=== PATIENT | male | born 1965 | race African-American/Black ===

== ENCOUNTER 2022-03-20 17:01 | Observation (INO) | payer OTHER ==
--- NOTE | 2022-03-20 18:01 | RAD REPORT ---
EXAM DESCRIPTION: RAD - Chest Single View - 03/20/2022 5:48 pm CLINICAL HISTORY: Cough Chest pain. COMPARISON: No comparisons FINDINGS: Portable technique limits examination quality. The lungs are grossly clear. The heart is normal in size. No displaced fractures. IMPRESSION: No acute intrathoracic process suspected.
[2022-03-20 19:01] LABS: Absolute Lymphocytes (CBC) 2.5 K/uL (0.7-4.9); Hematocrit 42.9 % (39.6-49.0); MCV 84.2 fL (80-100); RBC Red Blood Cell Count 5.09 M/uL (4.33-5.43)
[2022-03-20 19:20] LABS: Albumin 4.2 g/dL (3.4-5.0); Bilirubin Direct 0.2 mg/dL (0-0.2); Bilirubin Total 0.7 mg/dL (0.2-1.0); Magnesium 2.2 mg/dL (1.8-2.4); Potassium 3.7 mmol/L (3.5-5.1); Protein, Total 7.9 g/dL (6.4-8.2)
[2022-03-20 19:24] LABS: Troponin High Sensitivity 65.4 pg/mL (<58.9)
--- NOTE | 2022-03-20 20:03 | EDPHYS ---
Physician Documentation [facility] Name: Jerzy Ramos Age: 56 yrs Sex: Male : 1965 Arrival Date: 03/20/2022 Time: 17:07 Bed 27 Private MD: ED Physician Markus Azar HPI: 03/20 20:03 This 56 yrs old Black Male presents to ER via EMS with complaints of Shortness Of kb Breath. 20:03 The patient has shortness of breath with light activity. Onset: The symptoms/episode kb began/occurred 1 month(s) ago. Duration: The symptoms are continuous. The patient's shortness of breath is aggravated by exertion. Associated signs and symptoms: Pertinent positives: chest pain, diaphoresis. Severity of symptoms: At their worst the symptoms were moderate in the emergency department the symptoms are unchanged. The patient has not experienced similar symptoms in the past. The patient has been recently seen by a physician: admitted to [place] [facility], discharged yesterday. Pt reports shortness of breath on exertion for a month. Has been having chest pain today with episodes of tremors and diaphoresis. Was intubated and flown to [place] on Thursday because he was unresponsive. states they ran tests, but found nothing. Extubated and discharged yesterday. . Historical: - Allergies: 17:17 PENICILLINS; ww - Home Meds: 17:17 gabapentin 300 mg oral cap 1 cap 3 times per day [Active]; hydrochlorothiazide 12.5 mg ww Oral tab 1 tab once daily [Active]; meloxicam 15 mg oral tab 1 tab once daily [Active]; naltrexone 50 mg oral tab 1 tab once daily [Active]; allopurinol 300 mg Oral tab 1 tab 2 times per day [Active]; aspirin 81 mg Oral tab [Active]; atorvastatin 20 mg oral tab 1 tab once daily [Active]; cetirizine 10 mg oral tab 1 tab once daily [Active]; Lexapro 10 mg Oral tab 1 tab once daily [Active]; prazosin 2 mg Oral cap 1 cap daily [Active]; - Immunization history:: Adult Immunizations up to date. - Social history:: Smoking status: Patient reports the use of cigarette tobacco products, smokes one-half pack cigarettes per day. ROS: 19:58 Abdomen/GI: Negative for abdominal pain, nausea, vomiting, diarrhea, and constipation. kb 19:58 Constitutional: Positive for malaise. 19:58 Cardiovascular: Positive for chest pain, Negative for edema, orthopnea, palpitations, paroxysmal nocturnal dyspnea. 19:58 Respiratory: Positive for shortness of breath. 19:58 Neuro: Positive for tremor. 19:58 All other systems are negative. Exam: 20:02 Constitutional: This is a well developed, well nourished patient who is awake, alert, kb and in no acute distress. Head/Face: Normocephalic, atraumatic. ENT: Moist Mucous membranes Cardiovascular: Regular rate and rhythm with a normal S1 and S2. No gallops, murmurs, or rubs. No pulse deficits. Respiratory: Respirations even and unlabored. No increased work of breathing. Talking in full sentences Skin: Warm, dry with normal turgor. Normal color. MS/ Extremity: Pulses equal, no cyanosis. Neurovascular intact. Full, normal range of motion. Neuro: Awake and alert, GCS 15, oriented to person, place, time, and situation. Moves all extremities. Normal gait. Psych: Awake, alert, with orientation to person, place and time. Behavior, mood, and affect are within normal limits. Vital Signs: 17:14 BP 172 / 99; Pulse 73; Resp 13; Temp 99.7; Pulse Ox 100% on R/A; Weight 104.78 kg; ww Height 5 ft. 11 in. (180.34 cm); 19:30 BP 171 / 103; Pulse 68; Resp 20; Pulse Ox 100% on 2 lpm NC; ll3 20:30 BP 153 / 100; Pulse 65; Resp 12; Pulse Ox 100% on 2 lpm NC; ll3 17:14 Body Mass Index 32.22 (104.78 kg, 180.34 cm) ww MDM: 17:19 Patient medically screened. kb 19:58 Data reviewed: vital signs, nurses notes. Data interpreted: Pulse oximetry: on room air kb is 100 %. Interpretation: normal. Counseling: I had a detailed discussion with the patient and/or guardian regarding: the historical points, exam findings, and any diagnostic results supporting the discharge/admit diagnosis, lab results, radiology results, the need for further work-up and treatment in the hospital. 20:02 Physician consultation: Josselyn CHING was called at 20:02, regarding admission, to kb the telemetry unit. patient's condition, and will see patient in ED, shortly. 03/20 17:26 Order name: Basic Metabolic Panel; Complete Time: 19:26 kb 03/20 17:26 Order name: CBC with Diff; Complete Time: 19:08 kb 03/20 17:26 Order name: LFT's; Complete Time: 19:26 kb 03/20 17:26 Order name: Magnesium; Complete Time: 19:26 kb 03/20 17:26 Order name: NT PRO-BNP; Complete Time: 19:26 kb 03/20 17:26 Order name: Troponin HS; Complete Time: 19:26 kb 03/20 17:26 Order name: Flu; Complete Time: 18:19 kb 03/20 17:26 Order name: COVID-19 SARS RT PCR (Document "Date of Onset" if Symptomatic); Complete kb Time: 19:05 03/20 22:40 Order name: Creatine Phosphokinase EDMS 03/20 22:40 Order name: CKMB Creatine Kinase MB EDMS 03/21 05:03 Order name: CBC with Automated Diff EDMS 03/21 05:08 Order name: Troponin High Sensitivity EDMS 03/21 05:18 Order name: Basic Metabolic Panel EDMS 03/20 17:26 Order name: XRAY Chest (1 view); Complete Time: 18:03 kb 03/20 17:26 Order name: EKG; Complete Time: 17:26 kb 03/20 17:26 Order name: Cardiac monitoring; Complete Time: 18:05 kb 03/20 17:26 Order name: EKG - Nurse/Tech; Complete Time: 18:05 kb 03/20 17:26 Order name: IV Saline Lock; Complete Time: 18:39 kb 03/20 17:26 Order name: Labs collected and sent; Complete Time: 19:02 kb 03/20 17:26 Order name: O2 Per Protocol; Complete Time: 18:05 kb 03/20 17:26 Order name: O2 Sat Monitoring; Complete Time: 18:05 kb 03/21 05:18 Order name: Lipid Profile EDMS 03/21 05:18 Order name: Magnesium EDMS 03/21 05:18 Order name: Thyroid Stimulating Hormone EDMS 03/21 10:30 Order name: Troponin High Sensitivity EDMS 03/21 10:38 Order name: Protime (+INR) EDMS 03/21 10:38 Order name: PTT, Activated Partial Thromb EDMS Administered Medications: No medications were administered Disposition Summary: 03/20/22 20:03 Hospitalization Ordered Hospitalization Status: Observation kb Provider: Jaydon Malhotra Condition: Stable kb Problem: new kb Symptoms: are unchanged kb Bed/Room Type: Standard kb Location: [facility] ER HOLD(03/20/22 20:19) mw Room Assignment: ERHOLD-(03/20/22 20:19) mw Diagnosis - Chest pain, unspecified kb - Shortness of breath kb Forms: - Medication Reconciliation Form kb - SBAR form kb Signatures: Dispatcher [employer] EDDE Fatimah Rodriguez, FINESSE LOAN OPERATIONS SPECIALIST-Marie Calvin RN RN mw Zoe Mas RN RN ap3 Abida Flaherty RN RN ww Corrections: (The following items were deleted from the chart) 19:56 17:26 D-DIMER+COAG.LAB.BRZ ordered. EDDE EDDE 20:19 20:03 Telemetry/MedSurg (observation) [facility] 20:19 20:03 kb
--- NOTE | 2022-03-20 20:03 | ER ---
Nurse's Notes [facility] Name: Jerzy Ramos Age: 56 yrs Sex: Male : 1965 Arrival Date: 03/20/2022 Time: 17:07 Bed 27 Private MD: Diagnosis: Chest pain, unspecified;Shortness of breath Presentation: 03/20 17:14 Chief complaint: EMS states: Shortness of breath for 1 month. Life flighted on Thursday ww to [facility] and intubated. Patient was extubated yesterday and discharged. Patient still having shortness of breath, weakness, shaky feeling and like he has been hit with a truck. Coronavirus screen: Client denies travel out of the [place] in the last 14 days. Ebola Screen: Patient denies travel to an Ebola-affected area in the 21 days before illness onset. Initial Sepsis Screen: Does the patient meet any 2 criteria? No. Patient's initial sepsis screen is negative. Does the patient have a suspected source of infection? No. Patient's initial sepsis screen is negative. Risk Assessment: Do you want to hurt yourself or someone else? Patient reports no desire to harm self or others. Onset of symptoms is unknown. 17:14 Method Of Arrival: EMS: [facility] 17:14 Acuity: ANTIONETTE 3 ww Triage Assessment: 17:17 General: Appears in no apparent distress. uncomfortable, Behavior is cooperative. Pain: ww Complains of pain in generalized body aches. Neuro: Cabrera Agitation-Sedation Scale (RASS): 0 - Alert and Calm Level of Consciousness is awake, alert, obeys commands, Oriented to person, place, time, situation, Speech is normal. Cardiovascular: Capillary refill < 3 seconds Patient's skin is warm and dry. Rhythm is regular Chest pain is denied. Respiratory: Reports shortness of breath Airway is patent Respiratory effort is even, unlabored, Respiratory pattern is regular, symmetrical, Onset: The symptoms/episode began/occurred gradually, the patient has mild shortness of breath. GI: No signs and/or symptoms were reported involving the gastrointestinal system. Abdomen is non-distended, Abd is soft and non tender. Derm: No signs and/or symptoms reported regarding the dermatologic system. Skin is intact, is healthy with good turgor. Historical: - Allergies: 17:17 PENICILLINS; ww - Home Meds: 17:17 gabapentin 300 mg oral cap 1 cap 3 times per day [Active]; hydrochlorothiazide 12.5 mg ww Oral tab 1 tab once daily [Active]; meloxicam 15 mg oral tab 1 tab once daily [Active]; naltrexone 50 mg oral tab 1 tab once daily [Active]; allopurinol 300 mg Oral tab 1 tab 2 times per day [Active]; aspirin 81 mg Oral tab [Active]; atorvastatin 20 mg oral tab 1 tab once daily [Active]; cetirizine 10 mg oral tab 1 tab once daily [Active]; Lexapro 10 mg Oral tab 1 tab once daily [Active]; prazosin 2 mg Oral cap 1 cap daily [Active]; - Immunization history:: Adult Immunizations up to date. - Social history:: Smoking status: Patient reports the use of cigarette tobacco products, smokes one-half pack cigarettes per day. Screenin:23 Abuse screen: Denies threats or abuse. Denies injuries from another. Nutritional ww screening: No deficits noted. Tuberculosis screening: No symptoms or risk factors identified. Fall Risk None identified. Assessment: 17:23 Reassessment: Patient appears in no apparent distress at this time. No changes from ww previously documented assessment. Patient and/or family updated on plan of care and expected duration. Pain level reassessed. Patient is alert, oriented x 3, equal unlabored respirations, skin warm/dry/pink. see triage assessment. 18:23 Reassessment: Patient appears in no apparent distress at this time. No changes from ww previously documented assessment. Patient and/or family updated on plan of care and expected duration. Pain level reassessed. Patient is alert, oriented x 3, equal unlabored respirations, skin warm/dry/pink. 19:17 Reassessment: No changes from previously documented assessment. Patient and/or family ll3 updated on plan of care and expected duration. Pain level reassessed. Patient is alert, oriented x 3, equal unlabored respirations, skin warm/dry/pink. 19:24 Reassessment: Troponin 65.4, reported to Provider. vc1 20:30 Reassessment: No changes from previously documented assessment. Patient and/or family ll3 updated on plan of care and expected duration. Pain level reassessed. Patient is alert, oriented x 3, equal unlabored respirations, skin warm/dry/pink. 03/21 10:08 Cardiovascular: Patient's skin is warm and dry. Respiratory: Breath sounds are clear. ap3 Respiratory: Airway is patent. Vital Signs: 03/20 17:14 BP 172 / 99; Pulse 73; Resp 13; Temp 99.7; Pulse Ox 100% on R/A; Weight 104.78 kg; ww Height 5 ft. 11 in. (180.34 cm); 19:30 BP 171 / 103; Pulse 68; Resp 20; Pulse Ox 100% on 2 lpm NC; ll3 20:30 BP 153 / 100; Pulse 65; Resp 12; Pulse Ox 100% on 2 lpm NC; ll3 17:14 Body Mass Index 32.22 (104.78 kg, 180.34 cm) ED Course: 17:07 Patient arrived in ED. ap3 17:14 Abida Flaherty RN is Primary Nurse. ww 17:16 Triage completed. ww 17:17 Arm band placed on. ww 17:19 Fatimah Rodriguez FNP-C is [facility]. kb 17:19 Markus Azar MD is Attending Physician. kb 17:23 Patient has correct armband on for positive identification. Bed in low position. Call ww light in reach. Side rails up X2. Adult w/ patient. Client placed on continuous cardiac and pulse oximetry monitoring. NIBP monitoring applied. Warm blanket given. 17:50 XRAY Chest (1 view) In Process Unspecified. EDMS 20:02 Jaydon Malhotra is Hospitalizing Provider. 03/21 07:16 Primary Nurse role handed off by Abida Flaherty RN jl7 10:08 No provider procedures requiring assistance completed. Patient did not have IV access ap3 during this emergency room visit. 10:41 Zoe Mas, NOEL is Primary Nurse. jl7 Administered Medications: No medications were administered Medication: 10:08 VIS not applicable for this client. ap3 Outcome: 03/20 20:03 Decision to Hospitalize by Provider. kb 03/21 10:08 Admitted to ER Hold. Please see [facility] for further documentation. ap3 Condition: good Discharge instructions given to patient. 10:42 Patient left the ED. jl7 Signatures: Dispatcher [employer] EDWA Fatimah Rodriguez FNP-C FNP-Anjali Sosa RN RN jl7 Zoe Mas, RN RN ap3 Giles Mai, RN RN ll3 Abida Flaherty, RN RN ww Bing Turpin, RN RN vc1
--- NOTE | 2022-03-20 21:07 | P.HP ---
Certification for Inpatient Patient admitted to: Observation With expected LOS: <2 Midnights Patient will require the following post-hospital care: None Practitioner: I am a practitioner with admitting privileges, knowledge of patient current condition, hospital course, and medical plan of care. Services: Services provided to patient in accordance with Admission requirements found in Title 42 Section 412.3 of the Code of Federal Regulations Patient History Date of Service: 03/20/22 Primary Care Provider: [facility] Reason for admission: Chest Pain, SHOB History of Present Illness: Patient is a 56 y/o male with PMH of CAD, HTN, HLD, and gout who presented to the ED with complaints of chest pain, tremors, and diaphoresis on and off for a few days now. He also complaints of SNOW for 1 month. 2 days ago, he was taken via helicopter downtown after being found unresponsive, intubated by EMS, and worked up for what was thought to be stroke like symptoms. His workup was negative, he was extubated, and discharged. Patient and family say that they did not get any answers about what was wrong with him. [facility] and was sent here immediately after provider read EKG and heard extra heart sounds on auscultation. Patient's temp was 99.7 upon arrival, EKG showed T wave abnormality, and troponin HS 65.4. Patient is also requiring supplemental O2. He is admitted for further evaluation and treatment. Home medications list reviewed: Yes - Past Medical/Surgical History Diabetic: No -: HTN -: CAD -: HLD -: Gout -: 2 stents (unknown year) Psychosocial/ Personal History: Patient is . - Social History Smoking Status: Current every day smoker Alcohol use: Yes CD- Drugs: No Caffeine use: Yes Place of Residence: Home Review of Systems General: Other (tremors) Respiratory: SOB with Excertion Cardiovascular: Chest Pain Physical Examination - Physical Exam General: Alert, In no apparent distress HEENT: Atraumatic, PERRLA, EOMI, Sclerae nonicteric Neck: Supple, 2+ carotid pulse no bruit, No LAD, Without JVD or thyroid abnormality Respiratory: Clear to auscultation bilaterally, Normal air movement Cardiovascular: No edema, Regular rate/rhythm, Normal S1 S2 Gastrointestinal: Normal bowel sounds, No tenderness Musculoskeletal: No tenderness Integumentary: No rashes Neurological: Normal speech, Normal strength at 5/5 x4 extr, Normal tone, Normal affect - Studies Laboratory Data (last 24 hrs) 03/20/22 18:51: WBC 7.5, Hgb 14.0, Hct 42.9, Plt Count 194 03/20/22 18:51: Sodium 139, Potassium 3.7, BUN 14, Creatinine 1.06, Glucose 80, Magnesium 2.2, Total Bilirubin 0.7, AST 37, ALT 43, Alkaline Phosphatase 157 H Microbiology Data (last 24 hrs): 03/20/22 17:45 Nasopharnyx Influenza Type A Antigen Screen - Final 03/20/22 17:45 Nasopharnyx Influenza Type B Antigen Screen - Final Assessment and Plan - Problems (Diagnosis) (1) Chest pain Current Visit: Yes Status: Acute Qualifiers: Chest pain type: chest pain due to myocardial ischemia Ischemic chest pain type: unstable angina pectoris Qualified Code(s): I20.0 - Unstable angina (2) Elevated troponin Current Visit: Yes Status: Acute (3) Shortness of breath Current Visit: Yes Status: Acute (4) Hypertension Current Visit: Yes Status: Chronic Qualifiers: Hypertension type: primary hypertension Qualified Code(s): I10 - Essential (primary) hypertension (5) CAD (coronary artery disease) Current Visit: Yes Status: Acute Qualifiers: Coronary Disease-Associated Artery/Lesion type: [place] artery [place] vs. transplanted heart: [place] heart Associated angina: with unstable angina Qualified Code(s): I25.110 - Atherosclerotic heart disease of [place] coronary artery with unstable angina pectoris (6) Hyperlipidemia Current Visit: Yes Status: Acute Qualifiers: Hyperlipidemia type: unspecified Qualified Code(s): E78.5 - Hyperlipidemia, unspecified - Plan -Cardiology consult -Monitor on telemetry -Continue supplemental O2 as needed. Wean as tolerated. -Echo, lipid panel, and TSH ordered -Initial troponin HS slightly elevated at 65. Trend and check CPK and CKMB -Aspirin and atorvastatin daily -Monitor and replete electrolytes per protocol -Reconcile and continue home medications -Lovenox for VTE ppx -Full code Discharge Plan: Home Plan to discharge in: 24 Hours - Advance Directives Does patient have a Living Will: No Does patient have a Durable POA for Healthcare: No - Code Status/Comfort Care Code Status Assessed: Yes (Full) Critical Care: No Time Spent Managing Pts Care (In Minutes): 50
[2022-03-20] MEDS ORDERED: ACETAMINOPHEN 500 MG TAB PO PRN (21:40)
[2022-03-20] MEDS ORDERED: ONDANSETRON 4 MG/2 ML VIAL IV PRN (21:40)
[2022-03-20] MEDS ORDERED: ALBUTEROL 2.5 MG/3 ML NEB SOL NEB PRN (21:40)
[2022-03-20] MEDS ORDERED: METOPROLOL TAR 50 MG TAB PO ONE (22:15)
[2022-03-20] MEDS ORDERED: ASPIRIN EC 81 MG TAB PO ONE (22:15)
[2022-03-20 22:40] LABS: CKMB Creatine Kinase MB 1.5 ng/mL (1.0-3.6)
[2022-03-20] MEDS ORDERED: ASPIRIN 81 MG CHEWABLE TABLET ONE (22:50)
[2022-03-20] MEDS ORDERED: METOPROLOL TAR 50 MG TAB ONE (22:50)
[2022-03-20 22:51] VITALS: BMI 32.2
[2022-03-20] MEDS ORDERED: ZOLPIDEM TARTRATE 5 MG TABLET PO PRN (23:08)
[2022-03-21] MEDS ORDERED: MORPHINE 2 MG/ML SYR IV ONE (04:41)
[2022-03-21 04:43] LABS: Absolute Lymphocytes (CBC) 2.3 K/uL (0.7-4.9); Hematocrit 40.6 % (39.6-49.0); Lymphocytes % 38.1 % (15.3-44.8); MPV 8.6 fL (7.6-11.3); RBC Red Blood Cell Count 4.72 M/uL (4.33-5.43)
[2022-03-21] MEDS ORDERED: MORPHINE 2 MG/ML SYR ONE (04:55)
[2022-03-21] MEDS ORDERED: HYDROCODONE/APAP 5/325 MG TAB PO ONE (05:09)
[2022-03-21 05:17] LABS: Magnesium 2.1 mg/dL (1.8-2.4); Potassium 3.4 mmol/L (3.5-5.1); Thyroid Stimulating Hormone 0.848 uIU/mL (0.360-3.740)
[2022-03-21] MEDS ORDERED: HYDROCODONE/APAP 5/325 MG TAB ONE (05:30)
[2022-03-21] MEDS ORDERED: POTASSIUM 25 MEQ EFFERV TAB PO ONE (06:29)
[2022-03-21] MEDS ORDERED: POTASSIUM 25 MEQ EFFERV TAB ONE (06:46)
[2022-03-21] MEDS ORDERED: ENOXAPARIN 40 MG/0.4 ML SQ ONE (08:45)
[2022-03-21] MEDS ORDERED: ENOXAPARIN 40 MG/0.4 ML SQ SCH (09:00)
--- NOTE | 2022-03-21 09:50 | EKG ---
Test Date: 2022-03-20 Test Time: 17:44:59 Cat Hooker: H[place] MEASUREMENT RESULTS: Intervals: Rate: 65 MN: 144 QRSD: 80 QT: 426 QTc: 443 Warren: P: 50 MN: 144 QRS: 91 T: -2 INTERPRETIVE STATEMENTS: Normal sinus rhythm Rightward axis Abnormal QRS-T angle, consider primary T wave abnormality Abnormal ECG No previous ECG available for comparison Electronically Signed On 03-21-22 09:48:37 CDT by Guillermo Ibarra
[2022-03-21] MEDS ORDERED: MIDAZOLAM HCL 2 MG/2 ML INJ ONE ×2 (10:09→11:25)
[2022-03-21] MEDS ORDERED: FENTANYL CITR 100 MCG/2 ML ONE (10:09)
[2022-03-21] MEDS ORDERED: HEPA 1000U/500MLS 2,000 UNIT/1,000 ML BAG IV ONE (10:09)
[2022-03-21] MEDS ORDERED: CLOPIDOGREL 75 MG TABLET ONE (10:10)
[2022-03-21] MEDS ORDERED: HEPARIN 5000 UNIT/ML 1 ML VIAL ONE (10:10)
[2022-03-21] MEDS ORDERED: VERAPAMIL HCL 10 MG/4 ML VIAL IV ONE (10:10)
[2022-03-21] MEDS ORDERED: ASPIRIN 325 MG TAB ONE (10:10)
[2022-03-21] MEDS ORDERED: HEPARIN 10,000 UNIT/10 ML VIAL IV ONE (10:10)
[2022-03-21] MEDS ORDERED: ATROPINE SULF 1 MG/10 ML SYR IV ONE (10:11)
[2022-03-21] MEDS ORDERED: NA CHLORIDE 0.9% 500 ML ONE (10:11)
[2022-03-21] MEDS ORDERED: TICAGRELOR 90 MG TABLET PO ONE (10:11)
[2022-03-21 10:38] LABS: Protime INR 1.06
[2022-03-21] MEDS ORDERED: HYDRALAZINE HCL 20 MG/ML VIAL ONE (12:10)
--- NOTE | 2022-03-21 13:40 | RAD REPORT ---
EXAM DESCRIPTION: RAD - Abdomen 1 View (KUB) - 03/21/2022 5:00 am CLINICAL HISTORY: 56 years Male, abdominal pain COMPARISON: None. FINDINGS/IMPRESSION: 1. Nonspecific nonobstructive bowel gas pattern. 2. Large amount of stool throughout the colon. 3. Lung bases are clear. Electronically signed by: Grover Fitzpatrick MD 03/21/2022 5:48 AM CDT Due to temporary technical issues with the PACS/Fluency reporting system, reports are being signed by the in house radiologists without review as a courtesy to insure prompt reporting. The interpreting radiologist is fully responsible for the content of the report.
[2022-03-21 14:53] VITALS: O2SAT 99
--- NOTE | 2022-03-21 15:13 | P.DS ---
Admission Date: 03/20/22 Discharge Date: 03/21/22 Primary Care Provider: CA Reason for Admission: Chest Pain, SHOB - Problems (1) CAD (coronary artery disease) Current Visit: Yes Status: Acute Qualifiers: Coronary Disease-Associated Artery/Lesion type: [place] artery [place] vs. transplanted heart: [place] heart Associated angina: with unstable angina Qualified Code(s): I25.110 - Atherosclerotic heart disease of [place] coronary artery with unstable angina pectoris (2) Chest pain Current Visit: Yes Status: Acute Qualifiers: Chest pain type: chest pain due to myocardial ischemia Ischemic chest pain type: unstable angina pectoris Qualified Code(s): I20.0 - Unstable angina (3) Elevated troponin Current Visit: Yes Status: Acute (4) Shortness of breath Current Visit: Yes Status: Acute (5) Hypertension Current Visit: Yes Status: Chronic Qualifiers: Hypertension type: primary hypertension Qualified Code(s): I10 - Essential (primary) hypertension Brief History of Present Illness: Patient is a 56 y/o male with PMH of CAD, HTN, HLD, and gout who presented to the ED with complaints of chest pain, tremors, and diaphoresis on and off for a few days now. He also complaints of SNOW for 1 month. 2 days ago, he was taken via helicopter downtown after being found unresponsive, intubated by EMS, and worked up for what was thought to be stroke like symptoms. His workup was negative, he was extubated, and discharged. Patient and family say that they did not get any answers about what was wrong with him. [facility] and was sent here immediately after provider read EKG and heard extra heart sounds on auscultation. Patient's temp was 99.7 upon arrival, EKG showed T wave abnormality, and troponin HS 65.4. Patient is also requiring supplemental O2. He is admitted for further evaluation and treatment. Hospital Course: Patient placed under observation on the medical floor. He was asymptomatic. Troponin was slightly elevated but trended flat. He was seen by cardiology-Dr. Ibarra who recommended cardiac catheterization. Cardiac cath performed patient noted to have normal coronary arteries, no significant vessel occlusion. KUB done during the hospital stay demonstrated significant constipation. At this point patient is deemed stable for discharge. He will follow with Dr. Ibarra for further evaluation. Echocardiogram done and the result is pending. He is prescribed mag citrate for significant constipation. Vital Signs/Physical Exam: Temp Pulse Resp BP Pulse Ox 98.9 F 68 17 144/99 H 100 03/21/22 07:58 03/21/22 14:38 03/21/22 14:38 03/21/22 14:38 03/21/22 07:58 General: Alert, In no apparent distress, Oriented x3 HEENT: Mucous membr. moist/pink Neck: Supple, JVD not distended Respiratory: Clear to auscultation bilaterally, Normal air movement, Crackles/rales Cardiovascular: No edema, Regular rate/rhythm, Normal S1 S2 Capillary refill: <2 Seconds Gastrointestinal: Normal bowel sounds, Soft and benign, Non-distended, No tenderness Musculoskeletal: No swelling Integumentary: No rashes Neurological: Normal strength at 5/5 x4 extr Laboratory Data at Discharge: WBC 6.1 K/uL (4.3-10.9) D 03/21/22 03:38 Hgb 13.5 g/dL (13.6-17.9) L 03/21/22 03:38 Hct 40.6 % (39.6-49.0) 03/21/22 03:38 Plt Count 206 K/uL (152-406) 03/21/22 03:38 PT 11.7 SECONDS (9.5-12.5) 03/21/22 09:50 INR 1.06 03/21/22 09:50 APTT 31.9 SECONDS (24.3-36.9) 03/21/22 09:50 Sodium 138 mmol/L (136-145) 03/21/22 03:38 Potassium Cancelled 03/21/22 Unknown BUN 13 mg/dL (7-18) 03/21/22 03:38 Creatinine 0.97 mg/dL (0.55-1.3) 03/21/22 03:38 Glucose 95 mg/dL (74-106) 03/21/22 03:38 Magnesium 2.1 mg/dL (1.8-2.4) 03/21/22 03:38 Total Bilirubin 0.7 mg/dL (0.2-1.0) 03/20/22 18:51 AST 37 U/L (15-37) 03/20/22 18:51 ALT 43 U/L (12-78) 03/20/22 18:51 Alkaline Phosphatase 157 U/L (45-117) H 03/20/22 18:51 Triglycerides 126 mg/dL (<150) 03/21/22 03:38 Cholesterol 179 mg/dL (<200) 03/21/22 03:38 HDL Cholesterol 46 mg/dL (40-60) 03/21/22 03:38 Cholesterol/HDL Ratio 3.89 03/21/22 03:38 Home Medications: Allopurinol 2 tab PO DAILY 03/21/22 Aspirin 1 tab PO DAILY 03/21/22 Gabapentin 1 tab PO TID 03/21/22 Lidocaine 4% Patch [Lidoderm 5% Patch*] 1 patch TOP Q12H 03/21/22 Magnesium Citrate [Citroma*] 300 ml PO ONCE #1 btl 03/21/22 Meloxicam 1 tab PO DAILY 03/21/22 Metoprolol Tartrate 0.5 tab PO BID 03/21/22 Multivitamin 1 tab PO DAILY 03/21/22 hydroCHLOROthiazide [Hydrochlorothiazide] 1 cap PO DAILY 03/21/22 New Medications: Magnesium Citrate [Citroma*] 300 ml PO ONCE #1 btl Followup: Unknown,U [Primary Care Provider] -
[2022-03-21 17:10] VITALS: BP 164/72; TEMP 97.9
--- NOTE | 2022-03-21 22:48 | OP ---
Date of Procedure: 03/21/2022 Surgeon: LEO EDWARD Procedures Performed: 1.Selective coronary angiogram. 2.Left heart catheterization. Indication: [id number] myocardial infarction. Access: Right radial artery 6-[place] closed with TR band. Complications: None. Bleeding: Less than 10 mL. Total Sedation Time: 30 minutes. Description Of Procedure: After risks, benefits, and alternatives were explained, the patient agreed to the procedure and signed informed consent. The patient was brought into the cardiac catheterizat ion laboratory, prepped and draped in usual sterile fashion. Then, I accessed the right radial arter y using pediatric micropuncture kit to place a 6-[place] Island[place] slender sheath and took 5-[place] Barry 4 cath eter into the aortic root over a J-wire, engaged left main and right coronary artery, took standard v iews. Then, the catheter was advanced over the wire into the LV. LVEDP was measured at 6 mmHg. Pul lback did not record any gradient. The catheter and the sheath were removed, and placed TR band with good hemostasis. Findings: 1.Left main; large and normal. 2.LAD, large and normal, normal diagonal branches. 3.Left circumflex, moderate-size vessel and normal. 4.RCA; large, dominant, and normal. 5.Normal LVEDP at 6 mmHg. Conclusions: 1.Normal coronary arteries. 2.Normal LVEDP. Plan: Medical management. /[place] Voice ID: [id number] Report ID: [id number]
--- NOTE | 2022-03-23 00:45 | CON ---
Date of Consultation: 03/21/2022 Reason For Consultation: Unstable angina. History Of Present Illness: Mr. Ramos is a 56-year-old black male with a history of diabetes, com es in with new onset hypertensive crisis, chest pain radiating to both shoulders and back, with short ness of breath, nausea, and diaphoresis. He denied PND, orthopnea, pedal edema, palpitations, or syn cope. He was hypertensive. His troponin was elevated. EKG showed LVH. Past Medical History: Includes hypertension. Social History: Positive for tobacco. Family History: Negative for heart disease. Review of Systems: Negative. Allergies: PENICILLIN. Medications: At home include hydrochlorothiazide, prazosin, allopurinol, Lipitor, and Neurontin. Physical Examination: General: He was anxious. Vital Signs: Stable, afebrile, sinus rhythm. HEENT: Negative. Neck: Supple. No bruit, lymphadenopathy, JVD, or thyromegaly. Chest: Clear to auscultation and percussion. Cardiac: Exam revealed an S4 gallops. Regular rhythm and rate. Abdomen: Benign. Extremities: Revealed no clubbing, cyanosis, or edema. Diagnostic Data: As stated earlier. Impression And Plan: 1.Ava-XT-rkaofsikt myocardial infarction, possibly secondary to hypertensive crisis. Echocardiogram is pending. I think we should take him to the systems testing laboratory technician to evaluate his coronary anatomy. His sympt oms are very suggestive of coronary artery disease or hypertrophic cardiomyopathy. 2.Dyslipidemia on Lipitor. 3.Neuropathy on Neurontin. 4.Hypertension, on prazosin and hydrochlorothiazide. 5.Gout, on allopurinol. Again, we will see what his catheterization shows before making further decisions. He agrees to proc eed. He understands the risk and the benefits of the procedure. JOSEY/MODL Voice ID: [id number] Report ID: [id number]
--- NOTE | 2022-03-25 06:54 | ECHO ---
HEIGHT: 5 ft 11 in WEIGHT: 231 lb 0.006 oz DATE OF STUDY: 03/21/[address]: Josselyn Johnson 2-DIMENSIONAL: YES M.MODE: YES DOPPLER: YES COLOR FLOW: YES TDS: NO PORTABLE: YES DEFINITY: NO BUBBLE STUDY: NO DIAGNOSIS: CHEST PAIN CARDIAC HISTORY: CATHERIZATION: SURGERY: PROSTHETIC VALVE: PACEMAKER: MEASUREMENTS (cm) DIASTOLIC (NORMALS) SYSTOLIC (NORMALS) IVSd 1.0 (0.6-1.2) LA Diam 3.1 (1.9-4.0) LVEF 65% LVIDd 4.9 (3.5-5.7) LVIDs 3.1 (2.0-3.5) %FS 36% LVPWd 1.4 (0.6-1.2) Ao Diam 3.0 (2.0-3.7) 2 DIMENSIONAL ASSESSMENT: RIGHT ATRIUM: NORMAL LEFT ATRIUM: NORMAL RIGHT VENTRICLE: NORMAL LEFT VENTRICLE: LEFT VENTRICULAR HYPERTROPHY TRICUSPID VALVE: NORMAL MITRAL VALVE: NORMAL PULMONIC VALVE: NORMAL AORTIC VALVE: NORMAL PERICARDIAL EFFUSION: NONE AORTIC ROOT: NORMAL LEFT VENTRICULAR WALL MOTION: DECREASED LEFT VENTRICULAR COMPIANCE. DOPPLER/COLOR FLOW: DECREASED LEFT VENTRICULAR COMPLIANCE. COMMENTS: MILD DIASTOLIC DYSFUNCTION. NORMAL LEFT VENTRICULAR EJECTION FRACTION. NO EFFUSION. TECHNOLOGIST: Geovanny HARMON
== END 2022-03-21 16:30 | disposition home or self-care (01) ==
LOC: ER 17:01 → ERHOLD 20:52 → 2ND 03-21 12:12
PROVIDERS: ADMIT Internal Medicine; ATTEND Internal Medicine
DX: I25.110 Atherosclerotic heart disease of native coronary artery with unstable angina pectoris (principal); I16.9 Hypertensive crisis, unspecified; E78.5 Hyperlipidemia, unspecified; K59.00 Constipation, unspecified; M10.9 Gout, unspecified; E11.40 Type 2 diabetes mellitus with diabetic neuropathy, unspecified; R25.1 Tremor, unspecified; Z95.5 Presence of coronary angioplasty implant and graft; F17.210 Nicotine dependence, cigarettes, uncomplicated; Z79.82 Long term (current) use of aspirin; Z79.899 Other long term (current) drug therapy; Z88.0 Allergy status to penicillin; Z20.822 Contact with and (suspected) exposure to COVID-19
CPT/HCPCS: 36415; 71045; 74018; 80048; 80061; 80076; 82550; 82553; 83735; 83880; 84443; 84484; 85025; 85610; 85730; 87804; 93005; 93306; 93458; 94760; 99285; C1893; G0378; J0360; J1644; J1650; J2250; J2270; J3010; J7040; Q9967; U0003

== ENCOUNTER 2022-05-02 13:55 | Observation (INO) | payer OTHER ==
--- OUTSIDE RECORDS SUMMARY | 2022-05-02 13:57 | XMS REPORT | Continuity of Care Document ---
:1965 Author Organization [facility] Address [address] [place] [address] Dr. Mena [address] [place] [id number] Care Team Providers Name Role Phone TEVIN Attending Clinician Unavailable Meg Attending Clinician Unavailable TEVIN Admitting Clinician Unavailable Meg Admitting Clinician Unavailable Payers Payer Name Policy Type Policy Number Effective Date Expiration Date [place] [id number] 2014 00:00:00 [place] Problems This patient has no known problems. Allergies, Adverse Reactions, Alerts This patient has no known allergies or adverse reactions. Medications This patient has no known medications. Procedures This patient has no known procedures. Encounters Start End Encounter Admission Attending Care Care Encounter Source Date/Time Date/Time Type Type Clinicians Facility Department ID 2022-04-17 2022-04-17 Outpatient TEVIN [facility] [id number] [place] 00:00:00 00:00:00 [id number] 2021-05-16 2021-05-16 Outpatient [facility] [id number] [place] 07:42:00 07:42:00 [id number] [facility] 2020-08-08 2020-08-08 Outpatient [facility] [id number] [place] 02:20:00 02:20:00 [facility] Results This patient has no known results.
[2022-05-02 14:37] LABS: Absolute Lymphocytes (CBC) 2.3 K/uL (0.7-4.9); Hematocrit 40.6 % (39.6-49.0); MCV 86.9 fL (80-100); RBC Red Blood Cell Count 4.67 M/uL (4.33-5.43)
[2022-05-02 14:39] LABS: Protime INR 0.99
[2022-05-02 14:57] LABS: ALT/SGPT 38 U/L (12-78); AST/SGOT 32 U/L (15-37); Albumin 3.9 g/dL (3.4-5.0); Alkaline Phosphatase 132 U/L (45-117); BUN Blood Urea Nitrogen 18 mg/dL (7-18); Bicarbonate 29 mmol/L (21-32); Bilirubin Direct < 0.1 mg/dL (0-0.2); Bilirubin Total 0.3 mg/dL (0.2-1.0); Glomerular Filtration Rate 84 ml/min (=/>90); Glucose Level 89 mg/dL (74-106); Magnesium 2.5 mg/dL (1.8-2.4); NT PRO-BNP 47 pg/mL (<125); Potassium 3.8 mmol/L (3.5-5.1); Protein, Total 7.8 g/dL (6.4-8.2); Sodium Level 139 mmol/L (136-145); Troponin High Sensitivity 57.2 pg/mL (<58.9)
--- NOTE | 2022-05-02 15:30 | RAD REPORT ---
EXAM DESCRIPTION: RAD - Chest Single View - 05/02/2022 3:23 pm CLINICAL HISTORY: CHEST PAIN COMPARISON: Portable 03/20/2022 TECHNIQUE: AP portable chest image was obtained 05/02/2022 3:23 pm . FINDINGS: Lung volumes are low but clear. No acute interstitial finding. No failure or volume overlo ad. Heart and vasculature are normal. No measurable pleural effusion and no pneumothorax. No acute goldie ne finding. Sclerotic areas of the right proximal humerus are unchanged. No acute aortic findings justino pected. IMPRESSION: No acute cardiopulmonary process. No significant change from comparison study.
[2022-05-02] MEDS ORDERED: ONDANSETRON 4 MG/2 ML VIAL ONE (15:38)
[2022-05-02] MEDS ORDERED: MORPHINE 4 MG/ML SYR ONE ×2 (15:38→19:36)
--- NOTE | 2022-05-02 16:01 | RAD REPORT ---
EXAM DESCRIPTION: CT - Angio Aorta For Dissection - 05/02/2022 3:45 pm CLINICAL HISTORY: chest pain, lower abdomen pain COMPARISON: None. TECHNIQUE: Dynamically enhanced 3 mm thick images of the chest, abdomen, and upper pelvis were obtai moi during administration of approximately 150mL Isovue 370 IV contrast. Sagittal and coronal reconst ruction images were generated using MIP and reviewed. Exam utilizes a protocol to evaluate entire cou rse of the aorta. All CT scans are performed using dose optimization technique as appropriate and may include automated exposure control or mA/KV adjustment according to patient size. FINDINGS: Aorta is normal in diameter with no dissection or acute aortic findings. Scattered aortoil iac atherosclerotic calcifications are present with no centrally displaced calcifications. Coronary a rtery calcifications are minimal. Reconstruction images show no significant findings. Pulmonary arteries are normal. No cardiomegaly, pericardial thickening or pericardial effusion. No mass or infiltrate in the lung parenchyma. No pleural thickening, pleural effusion or pneumothorax . No abnormal mediastinal or hilar mass or lymphadenopathy seen. No chest wall mass or abnormal axillar y lymphadenopathy. Mild narrowing is present at the origin of the celiac artery. No SMA stenosis. Right renal artery is unremarkable. Approximately 60% stenosis seen in the left renal artery. Fatty infiltration of the angella er is likely present. No focal liver lesion identified. No spleen, pancreas, gallbladder or biliary t ree abnormality. Renal function is symmetric. No mass or abnormal lymphadenopathy. No free air, free fluid or inflammatory stranding. No urinary bladder abnormality. IMPRESSION: Negative CT scan of the aorta for acute or significant finding. Proximally 60% stenosis evident in the proximal left renal artery. There is mild narrowing at the l[place] gin of the celiac artery. No other significant findings on chest, abdomen and upper pelvis examination.
--- NOTE | 2022-05-02 16:02 | RAD REPORT ---
EXAM DESCRIPTION: CT - Head Brain Wo Cont - 05/02/2022 3:44 pm CLINICAL HISTORY: Headache, new or worsening COMPARISON: No comparisons TECHNIQUE: Axial 5 mm thick images of the head were obtained without IV contrast. All CT scans are performed using dose optimization technique as appropriate and may include automated exposure control or mA/KV adjustment according to patient size. FINDINGS: No intracranial hemorrhage, mass, edema or shift of mid-line structures. No acute infarcti on changes seen. No abnormal extra-axial fluid collections. Ventricles are normal. Mastoid air cells and visualized portions of the paranasal sinuses are clear. No acute bony findings. IMPRESSION: Negative non-contrast CT head examination.
[2022-05-02 16:03] LABS: Urine Blood Negative (Negative); Urine Glucose Negative (Negative); Urine Protein Negative (Negative); Urine pH 7.5 (5.0-7.0)
[2022-05-02] MEDS ORDERED: AMLODIPINE 10 MG TAB ONE (16:33)
[2022-05-02 16:38] LABS: Barbiturates NEGATIVE (NEGATIVE); Benzodiazepines NEGATIVE (NEGATIVE); Cocaine NEGATIVE (NEGATIVE); METHAMPHETAM NEGATIVE (NEGATIVE); Methadone NEGATIVE (NEGATIVE); Opiates NEGATIVE (NEGATIVE); Phencyclidine NEGATIVE (NEGATIVE); THC Cannibis POSITIVE (NEGATIVE)
--- NOTE | 2022-05-02 18:24 | ER ---
Nurse's Notes [facility] Name: Jerzy Ramos Age: 56 yrs Sex: Male : 1965 Arrival Date: 05/02/2022 Time: 13:59 Bed 8 Private MD: Diagnosis: Chest pain, unspecified Presentation: 05/02 13:59 Chief complaint: EMS states[facility], INTERMITTENT bp NEAR SYNCOPE. Coronavirus screen: At this time, the client does not indicate any symptoms associated with coronavirus-19. Ebola Screen: No symptoms or risks identified at this time. Initial Sepsis Screen: Does the patient meet any 2 criteria? No. Patient's initial sepsis screen is negative. Does the patient have a suspected source of infection? No. Patient's initial sepsis screen is negative. Risk Assessment: Do you want to hurt yourself or someone else? Patient reports no desire to harm self or others. Onset of symptoms is unknown. Care prior to arrival: Medication(s) given: ASA, 81 mg, x 4, Nitroglycerin, 0.4 mg SL x 1. 13:59 Method Of Arrival: EMS: [facility] bp 13:59 Acuity: ANTIONETTE 3 bp Triage Assessment: 14:01 General: Appears in no apparent distress. comfortable, Behavior is cooperative, bp appropriate for age, anxious. Pain: Complains of pain in chest. EENT: No deficits noted. Neuro: No deficits noted. Cardiovascular: Rhythm is sinus rhythm. Respiratory: No deficits noted. GI: No signs and/or symptoms were reported involving the gastrointestinal system. : No signs and/or symptoms were reported regarding the genitourinary system. Derm: No deficits noted. Musculoskeletal: No deficits noted. Historical: - Allergies: 14:01 PENICILLINS; bp - Home Meds: 14:01 allopurinol 100 mg oral tab 1 tab 2 times per day [Active]; aspirin 81 mg Oral tab 1 bp tab once daily [Active]; atorvastatin 20 mg Oral tab 1 tab once daily [Active]; cetirizine 10 mg Oral tab 1 tab once daily [Active]; gabapentin 300 mg Oral cap 1 cap 3 times per day [Active]; hydrochlorothiazide 12.5 mg Oral tab 1 tab once daily [Active]; meloxicam 15 mg Oral tab 1 tab once daily [Active]; metoprolol tartrate 50 mg Oral tab 0.5 tab 2 times per day [Active]; naltrexone 50 mg Oral tab 1 tab once daily [Active]; prazosin 2 mg Oral cap 1 cap daily [Active]; Lexapro 10 mg Oral tab 1 tab once daily [Active]; - PMHx: 14:01 COCAINE ABUSE; Gout; COGNITIVE DISORDER; ALCOHOL ABUSE; Hypercholesterolemia; bp Hypertensive disorder; - Immunization history:: Adult Immunizations up to date. - Social history:: Smoking status: Patient denies any tobacco usage or history of. Screenin:07 Abuse screen: Denies threats or abuse. Denies injuries from another. Nutritional bp screening: No deficits noted. Tuberculosis screening: No symptoms or risk factors identified. Fall Risk None identified. Assessment: 14:07 General: SEE TRIAGE NOTE. bp 15:10 Reassessment: No changes from previously documented assessment. Patient and/or family bp updated on plan of care and expected duration. Pain level reassessed. 19:15 Reassessment: No changes from previously documented assessment. Patient and/or family vc1 updated on plan of care and expected duration. Pain level reassessed. Pain: Complains of pain in chest Pain does not radiate. Pain currently is 7 out of 10 on a pain scale. Quality of pain is described as sharp, Pain began gradually. 20:20 Reassessment: Patient and/or family updated on plan of care and expected duration. Pain vc1 level reassessed. Patient is alert, oriented x 3, equal unlabored respirations, skin warm/dry/pink. Patient states symptoms have improved. 21:40 Reassessment: No changes from previously documented assessment. Patient and/or family vc1 updated on plan of care and expected duration. Pain level reassessed. Patient is alert, oriented x 3, equal unlabored respirations, skin warm/dry/pink. Vital Signs: 13:59 BP 154 / 110; Pulse 70; Resp 18; Temp 98; Pulse Ox 100% ; bp 14:27 BP 162 / 114; Pulse 63; Resp 13; Pulse Ox 100% ; bp 15:10 BP 172 / 106; Pulse 65; Resp 17; Pulse Ox 96% ; bp 20:00 BP 189 / 114; Pulse 69; Resp 17; Pulse Ox 100% ; vc1 20:59 BP 175 / 109; Pulse 70; Resp 16; Pulse Ox 98% on R/A; bm7 21:40 BP 166 / 104; Pulse 70; Resp 13; Pulse Ox 100% ; vc1 ED Course: 13:59 Patient arrived in ED. bp 14:00 Markus High PA is PHCP. cp 14:00 Nikolas Kay MD is Attending Physician. cp 14:01 Triage completed. bp 14:01 Arm band placed on. bp 14:07 Patient has correct armband on for positive identification. Bed in low position. Call bp light in reach. Side rails up X 1. Adult w/ patient. Client placed on continuous cardiac and pulse oximetry monitoring. NIBP monitoring applied. 14:23 Basic Metabolic Panel Sent. jh5 14:23 CBC with Diff Sent. 5 14:23 LFT's Sent. 5 14:23 Magnesium Sent. 5 14:23 NT PRO-BNP Sent. 5 14:23 PT-INR Sent. 5 14:23 Troponin HS Sent. 5 14:23 Inserted saline lock: 20 gauge in right antecubital area, using aseptic technique. bp Blood collected. Patient maintains SpO2 saturation greater than 95% on room air. 14:26 Jluis Perez, RN is Primary Nurse. bp 14:26 EKG done, by ED staff, reviewed by Markus CHING. dh3 15:06 XRAY Chest (1 view) Sent. bp 15:25 XRAY Chest (1 view) In Process Unspecified. EDMS 15:36 LAB Add On Sent. bp 15:46 CT Head Brain wo Cont In Process Unspecified. EDMS 15:47 CT Aorta for Dissection In Process Unspecified. EDMS 18:23 Tariq Lynn is Hospitalizing Provider. cp 18:25 Jaydon Malhotra is Hospitalizing Provider. la1 19:21 Primary Nurse role handed off by Jluis Perez, NOEL eb 19:25 paged the instrument sterilizer trauma surgeon. mw2 19:35 Bing Turpin RN is Primary Nurse. vc1 19:44 Jaydon Malhotra is Hospitalizing Provider. cp 21:40 No provider procedures requiring assistance completed. Patient admitted, IV remains in vc1 place. Administered Medications: 14:08 CANCELLED (GIVEN EN ROUTE): Aspirin Chewable Tablet 324 mg PO once; 81 mg tablets x 4 bp 15:30 Drug: morphine 4 mg Route: IVP; Infused Over: 4 mins; Site: right antecubital; bp 16:29 Follow up: Response: No adverse reaction ss 15:30 Drug: Zofran (Ondansetron) 4 mg Route: IVP; Site: right antecubital; bp 16:29 Follow up: Response: No adverse reaction ss 15:36 Not Given (Patient Refused): Nitroglycerin 0.4 mg Sublingual once bp 16:24 Drug: amLODIPine 10 mg Route: PO; bp 21:43 Follow up: Response: No adverse reaction; Blood pressure is unchanged vc1 19:35 Drug: morphine 4 mg Route: IVP; Infused Over: 4 mins; Site: right antecubital; vc1 21:43 Follow up: Response: No adverse reaction; Pain is decreased vc1 19:35 Drug: Tylenol 1000 mg Route: PO; vc1 21:43 Follow up: Response: No adverse reaction; Pain is decreased vc1 20:59 Drug: Metoprolol TARTRATE 50 mg Route: PO; bm7 21:42 Follow up: Response: No adverse reaction; Blood pressure is unchanged vc1 20:59 Drug: ProTONIX (pantoprazole) 40 mg Route: IVP; Site: right antecubital; bm7 21:42 Follow up: Response: No adverse reaction; Marked relief of symptoms vc1 Medication: 14:07 VIS not applicable for this client. bp Outcome: 18:23 Decision to Hospitalize by Provider. cp 19:45 Decision to Hospitalize by Provider. cp 21:41 Admitted to Med/surg accompanied by tech, via wheelchair, room 401, with chart, Report vc1 called to Receiving nurse 21:41 Condition: good 21:41 Instructed on the need for admit. 21:58 Patient left the ED. bm7 Signatures: Dispatcher [employer] EDMS Aurea Drummond RN RN ss Tariq Lynn, SPORTS LAWYER-C SPORTS LAWYER-Cla1 Markus High PA PA cp Lisa Orourke 3 Jluis Perez RN RN bp Pretty Moore 2 Lisa Fair Brittany, RN RN bm7 Roxy Rivera RN RN jh5 Bing Turpin RN RN vc1 Corrections: (The following items were deleted from the chart) 14:06 14:01 Home Meds: escitalopram oxalate 10 mg oral tab 1 tab once daily; bp bp
--- NOTE | 2022-05-02 18:24 | EDPHYS ---
Physician Documentation [facility] Name: Jerzy Ramos Age: 56 yrs Sex: Male : 1965 Arrival Date: 05/02/2022 Time: 13:59 Bed 8 Private MD: ED Physician Nikolas Kay HPI: 05/02 14:05 This 56 yrs old Black Male presents to ER via EMS with complaints of Chest Pain. cp 14:05 The patient or guardian reports chest pain that is located primarily in the anterior cp chest wall. Onset: 2 month(s) ago. The pain does not radiate. Associated signs and symptoms: Pertinent positives: abdominal pain, near-syncope, Pertinent negatives: diaphoresis, headache, lower extremity pain, lower extremity swelling, palpitations, shortness of breath, vomiting. The chest pain is described as sharp. Duration: The patient or guardian reports multiple episodes, that are intermittent. 14:05 Modifying factors: the symptoms are aggravated by nothing. cp 14:05 Severity of pain: in the emergency department the pain is unchanged. cp Historical: - Allergies: 14:01 PENICILLINS; bp - Home Meds: 14:01 allopurinol 100 mg oral tab 1 tab 2 times per day [Active]; aspirin 81 mg Oral tab 1 bp tab once daily [Active]; atorvastatin 20 mg Oral tab 1 tab once daily [Active]; cetirizine 10 mg Oral tab 1 tab once daily [Active]; gabapentin 300 mg Oral cap 1 cap 3 times per day [Active]; hydrochlorothiazide 12.5 mg Oral tab 1 tab once daily [Active]; meloxicam 15 mg Oral tab 1 tab once daily [Active]; metoprolol tartrate 50 mg Oral tab 0.5 tab 2 times per day [Active]; naltrexone 50 mg Oral tab 1 tab once daily [Active]; prazosin 2 mg Oral cap 1 cap daily [Active]; Lexapro 10 mg Oral tab 1 tab once daily [Active]; - PMHx: 14:01 COCAINE ABUSE; Gout; COGNITIVE DISORDER; ALCOHOL ABUSE; Hypercholesterolemia; bp Hypertensive disorder; - Immunization history:: Adult Immunizations up to date. - Social history:: Smoking status: Patient denies any tobacco usage or history of. ROS: 14:10 Constitutional: Negative for body aches, chills, fever, poor PO intake. cp 14:10 Eyes: Negative for injury, pain, redness, and discharge. cp 14:10 Cardiovascular: Positive for chest pain, Negative for edema, palpitations. 14:10 Respiratory: Negative for cough, shortness of breath, wheezing. 14:10 Abdomen/GI: Positive for abdominal pain, of the lower abdomen, Negative for vomiting, diarrhea, constipation, anorexia, black/tarry stool, rectal bleeding. Exam: 14:15 Constitutional: The patient appears in no acute distress, alert, awake, cp non-diaphoretic, non-toxic, well developed, well nourished, overweight 14:15 Head/Face: Normocephalic, atraumatic. cp 14:15 Eyes: Periorbital structures: appear normal, Conjunctiva: normal, no exudate, no injection, Sclera: no appreciated abnormality, Lids and lashes: appear normal, bilaterally. 14:15 ENT: External ear(s): are unremarkable, Nose: is normal, Mouth: Lips: moist, Oral cp mucosa: pink and intact, moist, Posterior pharynx: Airway: no evidence of obstruction, patent. 14:15 Neck: ROM/movement: is normal, is supple, without pain, no range of motions cp limitations, no nuchal rigidity. 14:15 Chest/axilla: Inspection: normal. 14:15 Cardiovascular: Rate: normal, Rhythm: regular, Edema: is not appreciated, JVD: is not appreciated. 14:15 Respiratory: the patient does not display signs of respiratory distress, Respirations: normal, no use of accessory muscles, no retractions, labored breathing, is not present, Breath sounds: are clear throughout, no decreased breath sounds, no stridor, no wheezing. 14:15 Abdomen/GI: Inspection: abdomen appears normal, Bowel sounds: active, all quadrants, Palpation: soft, in all quadrants, mild abdominal tenderness, in the right lower quadrant and left lower quadrant, rebound tenderness, is not appreciated, involuntary guarding, is not appreciated. 14:15 Back: ROM is normal, CVA tenderness, is absent. 14:15 Skin: cellulitis, is not appreciated, no rash present. 14:15 Neuro: Orientation: to person, place \T\ time. Mentation: is normal, Motor: moves all fours, strength is normal, Sensation: is normal. 14:30 ECG was reviewed by the Attending Physician. cp Vital Signs: 13:59 BP 154 / 110; Pulse 70; Resp 18; Temp 98; Pulse Ox 100% ; bp 14:27 BP 162 / 114; Pulse 63; Resp 13; Pulse Ox 100% ; bp 15:10 BP 172 / 106; Pulse 65; Resp 17; Pulse Ox 96% ; bp 20:00 BP 189 / 114; Pulse 69; Resp 17; Pulse Ox 100% ; vc1 20:59 BP 175 / 109; Pulse 70; Resp 16; Pulse Ox 98% on R/A; bm7 21:40 BP 166 / 104; Pulse 70; Resp 13; Pulse Ox 100% ; vc1 MDM: 14:04 Patient medically screened. 18:20 Data reviewed: vital signs, nurses notes, lab test result(s), EKG, radiologic studies, cp CT scan, plain films, I have discussed the patient's presentation/case with the attending Emergency Department Physician;. 18:20 Test interpretation: by ED physician or midlevel provider: ECG, plain radiologic cp studies. 18:22 The patient was not given aspirin in the Emergency Department. Administered by EMS. Physician consultation: Tariq Lynn was contacted at 18:22, regarding admission, to the telemetry unit. patient's condition, and will see patient in ED, shortly. 18:35 ED course: review of [facility] records shows patient with normal cardiac cath performed cp March [address] Goldberg. Will consult cardiology with today's results. 19:37 Physician consultation: Carlos Goldberg MD was contacted at 19:35, regarding consult, cp patient's condition, will consult on patient, recommends continued observation. 05/02 14:02 Order name: Basic Metabolic Panel; Complete Time: 15:11 05/02 16:22 Interpretation: Normal except: GFR 84. 05/02 14:02 Order name: CBC with Diff; Complete Time: 15:11 05/02 16:28 Interpretation: Normal except: HGB 13.2; RDW 16.5; BASO% 1.7. 05/02 14:02 Order name: LFT's; Complete Time: 15:11 05/02 14:02 Order name: Magnesium; Complete Time: 15:11 05/02 16:29 Interpretation: MG 2.5; Reviewed. 05/02 14:02 Order name: NT PRO-BNP; Complete Time: 15:11 cp 05/02 14:02 Order name: PT-INR; Complete Time: 15:11 cp 05/02 14:02 Order name: Troponin HS; Complete Time: 15:11 cp 05/02 15:13 Order name: UDS; Complete Time: 17:42 cp 08 15:15 Order name: LAB Add On cp 05/02 15:21 Order name: Lipase; Complete Time: 16:06 EDMS 05/02 16:04 Order name: Urine Dipstick-Ancillary; Complete Time: 16:06 EDMS 05/02 16:06 Interpretation: Normal except: UPH 7.5. cp 05/02 17:04 Order name: Troponin HS: Repeat at 1730; Complete Time: 18:10 ss 05/02 18:10 Interpretation: Abnormal: Troponin HS 59.0. cp 05/02 19:51 Order name: SARS RAPID mw2 05/02 14:02 Order name: XRAY Chest (1 view); Complete Time: 16:06 cp 05/02 16:07 Interpretation: Report review. cp 05/02 14:02 Order name: EKG; Complete Time: 14:04 cp 05/02 14:02 Order name: Cardiac monitoring; Complete Time: 14:08 cp 05/02 14:02 Order name: EKG - Nurse/Tech; Complete Time: 14:23 cp 05/02 14:02 Order name: IV Saline Lock; Complete Time: 14:23 cp 05/02 15:13 Order name: CT Aorta for Dissection; Complete Time: 16:06 cp 05/02 16:08 Interpretation: Report reviewed. cp 05/02 15:35 Order name: CT Head Brain wo Cont; Complete Time: 16:06 cp 05/02 16:29 Interpretation: Report reviewed. cp 05/02 14:02 Order name: Labs collected and sent; Complete Time: 14:23 cp 05/02 14:02 Order name: O2 Per Protocol; Complete Time: 14:08 cp 05/02 14:02 Order name: O2 Sat Monitoring; Complete Time: 14:08 cp 05/02 15:13 Order name: Urine Dipstick-Ancillary (obtain specimen); Complete Time: 16:29 cp 05/02 18:45 Order name: consult Order-Carlos Goldberg MD (Cardiology); Complete Time: 19:44 cp EC:30 Rate is 59 beats/min. Rhythm is regular. RI interval is normal. QRS interval is normal. cp QT interval is normal. T waves are Inverted in lead aVL. Interpreted by me. Reviewed by me. Administered Medications: 14:08 CANCELLED (GIVEN EN ROUTE): Aspirin Chewable Tablet 324 mg PO once; 81 mg tablets x 4 bp 15:30 Drug: morphine 4 mg Route: IVP; Infused Over: 4 mins; Site: right antecubital; bp 16:29 Follow up: Response: No adverse reaction ss 15:30 Drug: Zofran (Ondansetron) 4 mg Route: IVP; Site: right antecubital; bp 16:29 Follow up: Response: No adverse reaction ss 15:36 Not Given (Patient Refused): Nitroglycerin 0.4 mg Sublingual once bp 16:24 Drug: amLODIPine 10 mg Route: PO; bp 21:43 Follow up: Response: No adverse reaction; Blood pressure is unchanged vc1 19:35 Drug: morphine 4 mg Route: IVP; Infused Over: 4 mins; Site: right antecubital; vc1 21:43 Follow up: Response: No adverse reaction; Pain is decreased vc1 19:35 Drug: Tylenol 1000 mg Route: PO; vc1 21:43 Follow up: Response: No adverse reaction; Pain is decreased vc1 20:59 Drug: Metoprolol TARTRATE 50 mg Route: PO; bm7 21:42 Follow up: Response: No adverse reaction; Blood pressure is unchanged vc1 20:59 Drug: ProTONIX (pantoprazole) 40 mg Route: IVP; Site: right antecubital; bm7 21:42 Follow up: Response: No adverse reaction; Marked relief of symptoms vc1 Disposition Summary: 05/02/22 19:45 Hospitalization Ordered Hospitalization Status: Observation(05/02/22 19:45) cp Provider: Jaydon Malhotra(05/02/22 19:45) cp Location: Telemetry/MedSurg (observation)(05/02/22 19:45) cp Condition: Fair(05/02/22 19:45) cp Problem: an ongoing problem(05/02/22 19:45) cp Symptoms: have improved(05/02/22 19:45) cp Bed/Room Type: Standard(05/02/22 19:45) cp Room Assignment: [facility](05/02/22 20:47) Diagnosis - Chest pain, unspecified(05/02/22 19:45) cp Forms: - Medication Reconciliation Form cp - SBAR form cp Addendum: 05/04/2022 14:00 Attestation: The patient's history, exam findings, diagnostics, and a summary of any j r11 interventions or procedures was reviewed in detail with Markus CHING. Signatures: Dispatcher [employer] EDMS Marie Yancye RN RN Tariq Lynn, CHANGE MANAGEMENT COORDINATOR-C CHANGE MANAGEMENT COORDINATOR-Cla1 Markus High PA PA cp Jluis Perez RN RN bp Talita Barnard RN RN bm7 Bing Turpin RN RN vc1 Nikolas Kay MD MD [id number] Aurea Drummond RN ss Corrections: (The following items were deleted from the chart) 05/02 14:06 14:01 Home Meds: escitalopram oxalate 10 mg oral tab 1 tab once daily; bp bp 14:08 14:02 Aspirin Chewable Tablet 324 mg PO once; 81 mg tablets x 4 ordered. cp bp 15:32 15:16 LIPASE+C.LAB.BRZ ordered. EDMS EDMS 18:25 18:23 Tariq Lynn cp la1 18:45 18:23 Observation cp cp 18:45 18:23 Telemetry/MedSurg (observation) cp cp 18:45 18:23 Stable cp cp 18:45 18:23 new cp cp 18:45 18:23 have improved cp cp 18:45 18:23 Standard cp cp 18:45 18:23 cp cp 18:45 18:23 Chest pain, unspecified cp cp 18:45 18:25 Jaydon Malhotra la1 cp 20:47 19:45 cp 05/03 15:34 08 14:05 Associated signs and symptoms: Pertinent positives: abdominal pain, cp near-syncope, syncope, Pertinent negatives: diaphoresis, headache, lower extremity pain, lower extremity swelling, palpitations, shortness of breath, vomiting, cp 05/03 15:34 08 14:05 The chest pain is described as a pressure, cp cp
[2022-05-02] MEDS ORDERED: ACETAMINOPHEN 500 MG TAB ONE (19:36)
[2022-05-02 20:37] LABS: SARS-CoV-2 Antigen Rapid Res Negative (Negative)
[2022-05-02] MEDS ORDERED: PANTOPRAZOLE 40 MG INJ ONE (21:02)
[2022-05-02] MEDS ORDERED: METOPROLOL TAR 50 MG TAB ONE (21:02)
--- NOTE | 2022-05-02 21:16 | P.HP ---
Certification for Inpatient Patient admitted to: Observation With expected LOS: <2 Midnights Patient will require the following post-hospital care: None Practitioner: I am a practitioner with admitting privileges, knowledge of patient current condition, hospital course, and medical plan of care. Services: Services provided to patient in accordance with Admission requirements found in Title 42 Section 412.3 of the Code of Federal Regulations Patient History Date of Service: 05/02/22 Reason for admission: Chest pain History of Present Illness: 56-year-old male with history of hypertension, hyperlipidemia presents the emergency department for left-sided chest pain. He reports his symptoms been going on for couple months now described as sharp occasionally radiating to the back denies any shortness of breath reports his pain is sometimes made worse after eating he is supposed be following up with GI but has been unable to get an appointment so far. He was seen here in the emergency department his labs were significant for initial high-sensitivity troponin 57 point 2 repeat a 59.0 ED provider reached out to cardiology who recommended observation overnight repeat troponins. Patient had a heart catheterization performed on 03/21/2022 which showed normal coronary arteries and normal LVEDP, he also had an echocardiogram on 03/20/2022 with normal left ejection fraction and mild diastolic dysfunction. We will admit under observation. Allergies Penicillins Allergy (Verified 03/20/22 21:40) Itching Home Medications: Allopurinol 2 tab PO DAILY 03/21/22 Aspirin 1 tab PO DAILY 03/21/22 Atorvastatin Calcium 1 tab PO BEDTIME 03/21/22 Cetirizine HCl 1 tab PO DAILY 03/21/22 Escitalopram [Lexapro*] 1.5 tab PO DAILY 03/21/22 Gabapentin 1 tab PO TID 03/21/22 Lidocaine 4% Patch [Lidoderm 5% Patch*] 1 patch TOP Q12H 03/21/22 Magnesium Citrate [Citroma*] 300 ml PO ONCE #1 btl 03/21/22 Meloxicam 1 tab PO DAILY 03/21/22 Metoprolol Tartrate 0.5 tab PO BID 03/21/22 Multivitamin 1 tab PO DAILY 03/21/22 Prazosin HCl 1 cap PO BEDTIME 03/21/22 hydroCHLOROthiazide [Hydrochlorothiazide] 1 cap PO DAILY 03/21/22 - Past Medical/Surgical History Diabetic: No -: HTN -: CAD -: HLD -: Gout -: 2 stents (unknown year) Psychosocial/ Personal History: Patient is . - Family History Family History: Reviewed- Non-Contributory - Social History Smoking Status: Former smoker Alcohol use: Yes CD- Drugs: Yes Caffeine use: Yes Place of Residence: Home Review of Systems 10-point ROS is otherwise unremarkable Cardiovascular: Chest Pain Gastrointestinal: Nausea, Diarrhea, Constipation Physical Examination - Physical Exam General: Alert, In no apparent distress, Oriented x3 HEENT: Atraumatic, PERRLA, Mucous membr. moist/pink, EOMI, Sclerae nonicteric Neck: Supple, 2+ carotid pulse no bruit, No LAD, Without JVD or thyroid abnormality Respiratory: Clear to auscultation bilaterally, Normal air movement Cardiovascular: Regular rate/rhythm, Normal S1 S2 Capillary refill: <2 Seconds Gastrointestinal: Normal bowel sounds, No tenderness Musculoskeletal: No tenderness Integumentary: No rashes Neurological: Normal speech, Normal strength at 5/5 x4 extr, Normal tone, Normal affect - Studies Laboratory Data (last 24 hrs) 05/02/22 17:19: Lipase 124 05/02/22 15:15: Lipase Cancelled 05/02/22 14:19: PT 10.9, INR 0.99 05/02/22 14:19: WBC 5.9, Hgb 13.2 L, Hct 40.6, Plt Count 248 05/02/22 14:19: Sodium 139, Potassium 3.8, BUN 18, Creatinine 1.04, Glucose 89, Magnesium 2.5 H, Total Bilirubin 0.3, AST 32, ALT 38, Alkaline Phosphatase 132 H Assessment and Plan - Plan Assessment: Chest pain rule out ACS Uncontrolled primary hypertension Hyperlipidemia Recurrent syncope Plan: Chest pain rule out ACS: Trend troponins, monitor on telemetry, cardiology consult in place. Patient had recent heart catheterization/echocardiogram which only showed mild diastolic dysfunction. Pain sounds more GI in nature we will treat patient with Protonix as well recommend outpatient GI evaluation. Mild troponin leak possibly related to uncontrolled hypertension. Appreciate further input from cardiology. Uncontrolled primary hypertension: Patient had not taken his evening medications, blood pressure around 200 systolic given metoprolol 50 mg p.o. in ED as well as amlodipine 5. Patient takes Metropol 25 mg p.o.twice daily at home this was increased to 50 and amlodipine was initiated. Peer medications also in place. Hyperlipidemia: Continue atorvastatin Recurrent syncope: Reports about 3 episodes of syncope in the last month reports that he gets diaphoretic and lightheaded followed by passing out he cannot tell me if he has any chest pain or shortness of breath or palpitations at that time. Episodes have occurred in seated position as well. Cardiology consult is in place could possibly benefit with event monitor. This was discussed with patient. DVT PPX: Lovenox Code status: Full Discharge Plan: Home Plan to discharge in: 24 Hours - Advance Directives Does patient have a Living Will: No Does patient have a Durable POA for Healthcare: No - Code Status/Comfort Care Code Status Assessed: Yes (Full) Critical Care: No Time Spent Managing Pts Care (In Minutes): 70
[2022-05-02] MEDS ORDERED: ATORVASTATIN 40 MG TAB PO SCH (22:08)
[2022-05-02] MEDS ORDERED: ONDANSETRON 4 MG/2 ML VIAL IV PRN (22:08)
[2022-05-02] MEDS ORDERED: SODIUM CHLORIDE 0.9% 10ML INJ IV PRN (22:08)
[2022-05-02] MEDS ORDERED: MORPHINE 2 MG/ML SYR IV PRN (22:08)
[2022-05-02] MEDS ORDERED: HYDRALAZINE HCL 20 MG/ML VIAL IV PRN (22:08)
[2022-05-02 22:26] VITALS: BMI 33.7
[2022-05-02] MEDS ORDERED: MORPHINE 2 MG/ML SYR IV ONE (23:31)
[2022-05-02 23:34] VITALS: O2SAT 100
[2022-05-03 05:48] LABS: Absolute Lymphocytes (CBC) 1.9 K/uL (0.7-4.9); Hematocrit 39.9 % (39.6-49.0); Lymphocytes % 39.5 % (15.3-44.8); RBC Red Blood Cell Count 4.58 M/uL (4.33-5.43)
[2022-05-03] MEDS ORDERED: METOPROLOL TAR 25 MG TAB PO SCH (06:00)
[2022-05-03 06:09] LABS: Potassium 3.9 mmol/L (3.5-5.1); Troponin High Sensitivity 58.1 pg/mL (<58.9)
[2022-05-03 07:58] VITALS: BP 149/92; TEMP 97.2
[2022-05-03] MEDS ORDERED: ASPIRIN EC 81 MG TAB PO SCH (09:00)
[2022-05-03] MEDS ORDERED: POTASSIUM CL SA 10 MEQ TAB PO ONE (09:00)
[2022-05-03] MEDS ORDERED: PANTOPRAZOLE 40 MG INJ IVP SCH (09:00)
[2022-05-03] MEDS ORDERED: AMLODIPINE 5 MG TAB PO SCH (09:00)
[2022-05-03] MEDS ORDERED: ENOXAPARIN 40 MG/0.4 ML SQ SCH (09:00)
--- NOTE | 2022-05-05 18:45 | P.DS ---
Admission Date: 05/02/22 Discharge Date: 05/03/22 Disposition: ROUTINE DISCHARGE Discharge Condition: FAIR Reason for Admission: Chest pain - Problems (1) Chest pain Status: Acute Qualifiers: Chest pain type: chest pain due to myocardial ischemia Ischemic chest pain type: unstable angina pectoris Qualified Code(s): I20.0 - Unstable angina (2) Hyperlipidemia Status: Acute Qualifiers: Hyperlipidemia type: unspecified Qualified Code(s): E78.5 - Hyperlipidemia, unspecified (3) Hypertension Status: Chronic Qualifiers: Hypertension type: primary hypertension Qualified Code(s): I10 - Essential (primary) hypertension Brief History of Present Illness: 56-year-old male with history of hypertension, hyperlipidemia presented to the emergency department for left-sided chest pain. He reported his symptoms been going on for couple months. He described as sharp occasionally radiating to the back denies any shortness of breath reports his pain is sometimes made worse after eating. He is supposed be following up with GI but has been unable to get an appointment so far. He was seen here in the emergency department his labs were significant for initial high-sensitivity troponin 57 point 2 repeat a 59.0 ED provider reached out to cardiology who recommended observation overnight repeat troponins. Patient had a heart catheterization performed on 03/21/2022 which showed normal coronary arteries and normal LVEDP, he also had an echocardiogram on 03/20/2022 with normal left ejection fraction and mild diastolic dysfunction. Patient placed under observation for further management. Hospital Course: Patient placed on observation on the medical floor. Troponin trended negative. Patient was chest pain-free during the hospital stay. ACS ruled out. Patient is deemed stable for discharge. Vital Signs/Physical Exam: Temp Pulse Resp BP Pulse Ox 97.2 F 65 16 149/92 H 100 05/03/22 07:57 05/03/22 08:07 05/03/22 07:57 05/03/22 08:07 05/03/22 07:57 General: Alert, In no apparent distress, Oriented x3 HEENT: Mucous membr. moist/pink Neck: Supple, JVD not distended Respiratory: Clear to auscultation bilaterally, Normal air movement Cardiovascular: No edema, Regular rate/rhythm, Normal S1 S2 Gastrointestinal: Soft and benign, Non-distended Laboratory Data at Discharge: WBC 4.9 K/uL (4.3-10.9) D 05/03/22 05:31 Hgb 13.1 g/dL (13.6-17.9) L 05/03/22 05:31 Hct 39.9 % (39.6-49.0) 05/03/22 05:31 Plt Count 243 K/uL (152-406) 05/03/22 05:31 PT 10.9 SECONDS (9.5-12.5) 05/02/22 14:19 INR 0.99 05/02/22 14:19 Sodium 138 mmol/L (136-145) 05/03/22 05:31 Potassium 3.9 mmol/L (3.5-5.1) 05/03/22 05:31 BUN 12 mg/dL (7-18) 05/03/22 05:31 Creatinine 0.90 mg/dL (0.55-1.3) 05/03/22 05:31 Glucose 103 mg/dL (74-106) 05/03/22 05:31 Magnesium 2.5 mg/dL (1.8-2.4) H 05/02/22 14:19 Total Bilirubin 0.3 mg/dL (0.2-1.0) 05/02/22 14:19 AST 32 U/L (15-37) 05/02/22 14:19 ALT 38 U/L (12-78) 05/02/22 14:19 Alkaline Phosphatase 132 U/L (45-117) H 05/02/22 14:19 Lipase 124 U/L (73-393) 05/02/22 17:19 Home Medications: Allopurinol 2 tab PO DAILY 03/21/22 Aspirin 1 tab PO DAILY 03/21/22 Atorvastatin Calcium 1 tab PO BEDTIME 03/21/22 Cetirizine HCl 1 tab PO DAILY 03/21/22 Escitalopram [Lexapro*] 1.5 tab PO DAILY 03/21/22 Gabapentin 1 tab PO TID 03/21/22 Lidocaine 4% Patch [Lidoderm 5% Patch*] 1 patch TOP Q12H 03/21/22 Magnesium Citrate [Citroma*] 300 ml PO ONCE #1 btl 03/21/22 Meloxicam 1 tab PO DAILY 03/21/22 Metoprolol Tartrate 0.5 tab PO BID 03/21/22 Multivitamin 1 tab PO DAILY 03/21/22 Prazosin HCl 1 cap PO BEDTIME 03/21/22 hydroCHLOROthiazide [Hydrochlorothiazide] 1 cap PO DAILY 03/21/22 Followup: Ruben Yanez MD [Primary Care Provider] - 1-2 Weeks (Call to schedule an appointment)
--- NOTE | 2022-05-06 08:27 | EKG ---
Test Date: 2022-05-02 Test Time: 14:23:47 Pulmonologist: LORNE MEASUREMENT RESULTS: Intervals: Rate: 59 TN: 158 QRSD: 82 QT: 434 QTc: 429 Ramona: P: 64 TN: 158 QRS: 72 T: 46 INTERPRETIVE STATEMENTS: Sinus bradycardia Otherwise normal ECG Compared to ECG 03/20/2022 17:44:59 Sinus rhythm no longer present Right-axis deviation no longer present T-wave abnormality no longer present Electronically Signed On 05-06-22 08:13:06 CDT by Guillermo Ibarra
== END 2022-05-03 09:20 | disposition home or self-care (01) ==
LOC: ER 13:55 → ERHOLD 20:15 → 4TH 21:40
PROVIDERS: ADMIT Internal Medicine; ATTEND Internal Medicine
DX: I25.110 Atherosclerotic heart disease of native coronary artery with unstable angina pectoris (principal); I11.9 Hypertensive heart disease without heart failure; E78.5 Hyperlipidemia, unspecified; R55 Syncope and collapse; R11.2 Nausea with vomiting, unspecified; K59.00 Constipation, unspecified; M10.9 Gout, unspecified; Z95.5 Presence of coronary angioplasty implant and graft; Z87.891 Personal history of nicotine dependence; Z79.82 Long term (current) use of aspirin; Z79.899 Other long term (current) drug therapy; Z88.0 Allergy status to penicillin; Z20.822 Contact with and (suspected) exposure to COVID-19
CPT/HCPCS: 93005; 85025 ×2; 80048 ×2; 36415; 83735; 85610; 80076; 81003; 84484 ×4; 83690; 83880; 80307; 70450; 71275; 74175; 71045; 96375; 96374; 99285; 87811; Q9967; C9113 ×2; J1650; J2270; J2405; G0378 ×3